=== PATIENT | female | born 1990 | race American Indian/Alaskan Native ===

== ENCOUNTER 2017-06-21 14:44 | Outpatient (CLI) | payer MEDICAID ==
[2017-06-21 15:14] VITALS: BP 104/60
[2017-06-21] MEDS ORDERED: VISTARIL PO ONE (16:31)
== END 2017-06-21 17:07 | disposition home or self-care (01) ==
LOC: TRG 14:44
PROVIDERS: ATTEND Obstetrics & Gynecology
DX: O47.1 False labor at or after 37 completed weeks of gestation (principal); Z3A.39 39 weeks gestation of pregnancy
CPT/HCPCS: 59025; Q0177

== ENCOUNTER 2017-06-22 08:03 | Inpatient (IN) | payer MEDICAID ==
[2017-06-22] MEDS ORDERED: NARCAN 0.4 MG/1 ML IV PRN (08:50)
[2017-06-22] MEDS ORDERED: BRETHINE SUB-Q PRN (08:50)
[2017-06-22] MEDS ORDERED: MINERAL OIL PO PRN (08:50)
[2017-06-22] MEDS ORDERED: ZOFRAN IV PRN ×2 (08:50→18:30)
[2017-06-22] MEDS ORDERED: BRETHINE IVP PRN (08:50)
[2017-06-22] MEDS ORDERED: ePHEDrine SULFATE IV PRN ×2 (08:50→10:43)
[2017-06-22] MEDS ORDERED: XYLOCAINE 2% INFILTRATI ONE (08:50)
[2017-06-22] MEDS ORDERED: PITOCin/NS 20 UNIT/1000ML DRIP 20 UNITS/1,000 ML BAG IV SCH ×2 (09:00→18:30)
[2017-06-22] MEDS ORDERED: PITOCin/NS 30 UNIT/500ML 30 UNITS/500 ML BAG IV SCH (09:00)
[2017-06-22] MEDS: SUBLIMAZE IV PRN ×2 (09:23→10:13)
[2017-06-22] MEDS: LACTATED RINGERS 1,000 ML IV SCH ×3 (09:23→11:28)
[2017-06-22 09:55] LABS: Hematocrit 30.2 % (30.3-42.9); Hemoglobin 10.6 gm/dl (10.1-14.3); Mean Corpuscular HGB Conc 35 % (30-34); Mean Corpuscular Hemoglobin 31 pg (28-32); Mean Corpuscular Volume 90 fl (79-97); Platelet Count 156 K/mm3 (140-440); Red Blood Count 3.36 M/mm3 (3.65-5.03); Red Cell Distribution Width 12.9 % (13.2-15.2); White Blood Count 8.1 K/mm3 (4.5-11.0)
[2017-06-22] MEDS ORDERED: ePHEDrine SULFATE ONE (10:10)
[2017-06-22] MEDS ORDERED: NARCAN 2 MG/2 ML IV PRN (10:43)
--- NOTE | 2017-06-22 10:43 | Anesthesia Consultation ---
Anesthesia Consult and Med Hx Date of service: 06/22/17 - Airway Anesthetic Teeth Evaluation: Good ROM Head & Neck: Adequate Mental/Hyoid Distance: Adequate Mallampati Class: Class II Intubation Access Assessment: Probably Good - Pre-Operative Health Status ASA Pre-Surgery Classification: ASA2 Proposed Anesthetic Plan: Epidural, Spinal - Pulmonary Hx Asthma: No COPD: No Hx Pneumonia: No - Cardiovascular System Hx Hypertension: No - Central Nervous System Hx Seizures: No Hx Psychiatric Problems: No - Endocrine Hx Renal Disease: No Hx End Stage Renal Disease: No Hx Hypothyroidism: No Hx Hyperthyroidism: No - Hematic Hx Anemia: Yes Hx Sickle Cell Disease: No - Other Systems Hx Alcohol Use: No
[2017-06-22] MEDS ORDERED: fentaNYL-BUPIV 2 MCG/ML-0.125% 200 MCG/100 ML BAG EPIDURAL SCH (11:00)
[2017-06-22] MEDS: PITOCin/NS 30 UNIT/500ML 30 UNITS/500 ML BAG IV SCH ×4 (12:11→15:01)
--- NOTE | 2017-06-22 14:21 | History and Physical Report ---
History of Present Illness Date of examination: 06/22/17 Date of admission: 06/22/17 08:04 Chief complaint: contractions History of present illness: Pt is a 26 year old female FRANCIS 06/27/17 at 39w2d who presents with regular contractions and advanced cervical dilation of 5-6 cm. She denies leakage of fluid or vaginal bleeding. She has had care at [facility] since 12 wks complicated by total previa in first trimester which resolved by 05/24/17, genital herpes on Valtrex suppression, and anemia on iron supplementation. She is GBS negative. 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 Family/Genetic History: hypertension Social history: no significant social history - Obstetrical History Expected Date of Delivery: 06/27/17 Actual Gestation: 39 Week(s) 2 Day(s) : 4 Para: 2 Hx # Term Pregnancies: 2 Number of Pregnancies: 0 Spontaneous Abortions: 0 Induced : 1 Number of Living Children: 2 Medications and Allergies Allergies Allergy/AdvReac Type Severity Reaction Status Date / Time No Known Allergies Allergy Verified 06/21/17 15:04 Home Medications Medication Instructions Recorded Confirmed Last Taken Type Nitrofurantoin [place]/M-Cryst 100 mg PO Q12HR #14 capsule 12/11/16 Unknown Rx [Macrobid CAP] Active Meds: Active Medications Ephedrine Sulfate (Ephedrine Sulfate) 10 mg IV Q2M PRN PRN Reason: Hypotension Stop: 06/22/17 23:59 Fentanyl (Sublimaze) 100 mcg IV Q2H PRN PRN Reason: Labor Pain Last Admin: 06/22/17 10:13 Dose: 100 mcg Lactated Ringer's (Lactated Ringers) 1,000 mls @ 125 mls/hr IV DIRECT MARCO ANTONIO Last Admin: 06/22/17 11:28 Dose: 125 mls/hr Oxytocin/Sodium Chloride (Pitocin/Ns 20 Unit/1000ml Drip) 20 units in 1,000 mls @ 125 mls/hr IV DIRECT MARCO ANTONIO Oxytocin/Sodium Chloride (Pitocin/Ns 30 Unit/500ml) 30 units in 500 mls @ 4 mls /hr IV TITR MARCO ANTONIO PRN Reason: Protocol Oxytocin/Sodium Chloride (Pitocin/Ns 30 Unit/500ml) 30 units in 500 mls @ 1 mls /hr IV TITR MARCO ANTONIO; 1 MILLIUNITS/MIN PRN Reason: Protocol Last Admin: 06/22/17 14:00 Dose: 8 milliunits/min, 8 mls/hr Fentanyl/Bupivacaine/Sodium Chlor (Fentanyl-Bupiv 2 Mcg/Ml-0.125%) 200 mcg in 100 mls @ 12 mls/hr EPIDURAL TITR MARCO ANTONIO PRN Reason: Protocol Last Admin: 06/22/17 12:22 Dose: 12 mls/hr Mineral Oil (Mineral Oil) 30 ml PO QHS PRN PRN Reason: Constipation Naloxone HCl (Narcan 2 Mg/2 Ml) 0.2 mg IV Q5M PRN PRN Reason: Respiratory sedation Stop: 06/22/17 23:59 Ondansetron HCl (Zofran) 4 mg IV Q8H PRN PRN Reason: Nausea And Vomiting Review of Systems All systems: negative - Vital Signs Vital signs: Vital Signs Pulse Pulse Ox 81 97 06/22/17 09:11 06/22/17 09:11 Temp Pulse Resp BP Pulse Ox 96.9 F L 80 18 101/59 98 06/22/17 10:02 06/22/17 14:12 06/22/17 10:02 06/22/17 14:09 06/22/17 14:12 - Physical Exam Breasts: Positive: deferred Cardiovascular: Regular rate Lungs: Positive: Clear to auscultation Abdomen: Positive: soft (gravid ) Uterus: Positive: enlarged (gravid ) - Obstetrical FHR: auscultation normal Uterine Contraction Monitor Mode: External Cervical Dilatation: 8.5 Cervical Effacement Percentage: 100 station: -2 Uterine Contraction Pattern: Regular Uterine Tone Measurement Phase: Resting Uterine Contraction Intensity: Moderate Results Result Diagrams: 06/22/17 08:45 Abnormal lab results 06/22/17 Range/Units 08:45 RBC 3.36 L (3.65-5.03) M/mm3 Hct 30.2 L (30.3-42.9) % MCHC 35 H (30-34) % RDW 12.9 L (13.2-15.2) % All other labs normal. Assessment and Plan A: IUP at 39w2d Active labor GBS negative Genital Herpes- no lesion or prodrome P: Admit to labor and delivery. Routine intrapartum care. Closely monitor maternal and status.
--- NOTE | 2017-06-22 16:00 | Procedure Note ---
OB Delivery Note - Delivery Date of Delivery: 06/22/17 Surgeon: NARESH MIRANDA Estimated blood loss: 300cc - Vaginal Delivery presentation: vertex Delivery position: OA Intrapartum events: PROM->1hr before delivery, decreased FHT variability, mult.variable deceleratio Delivery induction: none Delivery augmentation: pitocin Delivery monitor: external FHT, external uterine Route of delivery: Delivery placenta: spontaneous Delivery cord: 3 umbilical vessels Episiotomy: none Delivery laceration: other (bilateral periurethral- hemostatic ) Anesthesia: epidural Delivery comments: Pt progressed to complete/complete/+3 and pushed to deliver a viable male via over intact perineum under epidural anesthesia. Head delivered in TAY position, followed by shoulders and body. placed on maternal abdomen and bulb suctioned. Cord clamped and cut. Cord blood collected. Placenta delivered spontaneously (3VC, intact). Vagina and perineum explored. Bilateral periurethrals noted to be hemostatic. EBL 300 mL. - A at 1 minute: 8 at 5 minutes: 9 Infant Gender: Male (3445g (7lb 10 oz) @ 1541 pm)
[2017-06-22] MEDS ORDERED: PITOCin/NS 20 UNIT/1000ML DRIP 20,000 MILLIUNITS/1,000 ML BAG IV ONE (18:20)
[2017-06-22] MEDS ORDERED: DULCOLAX PR PRN (18:30)
[2017-06-22] MEDS ORDERED: SODIUM CHLORIDE FLUSH SYRINGE 10 ML IV SCH (18:30)
[2017-06-22] MEDS ORDERED: LANSINOH TP PRN (18:30)
[2017-06-22] MEDS ORDERED: TYLENOL PO PRN (18:30)
[2017-06-22] MEDS ORDERED: BENADRYL PO PRN (18:30)
[2017-06-22] MEDS ORDERED: PHENERGAN PR PRN (18:30)
[2017-06-22] MEDS ORDERED: PHENERGAN PO PRN (18:30)
[2017-06-22] MEDS ORDERED: TUCKS PAD TP PRN (18:30)
[2017-06-22] MEDS ORDERED: MILK OF MAGNESIA PO PRN (18:30)
[2017-06-22] MEDS: MOTRIN PO SCH (20:31)
[2017-06-22] MEDS: FEOSOL PO SCH (21:59)
[2017-06-23] MEDS: MOTRIN PO SCH ×5 (01:02→23:20)
[2017-06-23 05:14] LABS: Hematocrit 26.2 % (30.3-42.9); Hemoglobin 8.4 gm/dl (10.1-14.3)
[2017-06-23] MEDS: NORCO 5/325 PO PRN ×2 (05:17→21:18)
[2017-06-23] MEDS ORDERED: BOOSTRIX IM ONE (06:00)
[2017-06-23] MEDS: FEOSOL PO SCH ×2 (10:46→21:20)
[2017-06-23] MEDS: PRENATAL VITAMIN PO SCH (10:46)
--- NOTE | 2017-06-23 15:23 | Progress Note ---
Assessment and Plan A: PPD#1 s/p at term, Asymptomatic anemia P: Routine care. Anticipate discharge tomorrow morning. Subjective - Subjective Date of service: 06/23/17 Principal diagnosis: s/p at term Interval history: No overnight issues. Patient reports: appetite normal, voiding normally, pain well controlled, ambulating normally, no dizzy ambulation, no nauseated [place]: doing well Objective - Vital Signs Latest vital signs: Vital Signs Temp Pulse Resp BP BP Pulse Ox 06/23/17 12:45 98.2 F 71 19 95/52 06/23/17 10:47 18 06/23/17 08:50 98.0 F 66 17 97/43 06/23/17 05:30 97.7 F 76 20 108/66 06/23/17 01:33 98.5 F 88 20 98/50 06/22/17 18:16 98.7 F 80 18 111/69 06/22/17 17:33 88 97 06/22/17 17:28 71 98 06/22/17 17:23 74 98 06/22/17 17:18 73 98 06/22/17 17:13 78 99 06/22/17 17:09 78 112/63 06/22/17 17:08 83 99 06/22/17 17:03 74 98 06/22/17 16:59 84 88 06/22/17 16:58 75 99 17 16:53 77 100 06/22/17 16:48 71 97 06/22/17 16:43 72 99 06/22/17 16:39 72 110/63 06/22/17 16:38 73 99 06/22/17 16:36 75 94 17 16:33 75 99 06/22/17 16:28 77 99 06/22/17 16:24 85 92 06/22/17 16:23 74 98 06/22/17 16:18 73 99 06/22/17 16:13 79 99 06/22/17 16:09 71 114/62 17 16:08 82 98 17 15:52 72 98 06/22/17 15:47 87 99 06/22/17 15:44 81 77 L 06/22/17 15:42 80 100 06/22/17 15:40 72 128/78 06/22/17 15:36 80 100 06/22/17 15:32 75 100 06/22/17 15:27 61 100 06/22/17 15:26 66 104/61 Intake and Output 06/23/17 06/23/17 06/23/17 06:59 14:59 22:59 Intake Total 360 120 Output Total 800 Balance -440 120 Intake: Oral 120 Intake, Free Water 360 Output: Urine 800 Void 800 Other: Total, Intake Amount 120 Total, Output Amount 800 # Voids Void 1 1 - Exam Breasts: Present: deferred Cardiovascular: Present: Regular rate Lungs: Present: Clear to auscultation Abdomen: Present: soft Uterus: Present: normal, fundal height at umbilicus Extremities: Present: normal - Labs Labs: Abnormal lab results 06/23/17 Range/Units 04:38 Hgb 8.4 L (10.1-14.3) gm/dl Hct 26.2 L (30.3-42.9) %
--- NOTE | 2017-06-23 15:27 | Discharge Summary ---
Providers - Providers Date of Admission: 06/22/17 08:04 Date of discharge: 06/24/17 Attending physician: NARESH MIRANDA 06/22/17 18:30 Consult to Sugar Laboratory Assistant [CONS] Routine Reason For Exam: assistance with , SNS Primary care physician: NARESH MIRANDA Hospitalization Reason for admission: active labor Delivery: Procedure details: Please see delivery note. Episiotomy: none Laceration: other (Bilateral periurethrals ) Incision: normal Other procedures: none complications: none Discharge diagnosis: IUP at term delivered baby: male Hospital course: Patient was admitted in active labor and went on to have a spontaneous vaginal delivery she tolerated well. Her course was uncomplicated and she would discharge criteria on postoperative day #2. Condition at discharge: Stable Disposition: DC-01 TO HOME OR SELFCARE - Discharge Diagnoses (1) Term of male Status: Acute (2) Anemia Status: Acute Qualifiers: Anemia type: unspecified type Iron deficiency anemia type: I Vitamin B12 deficiency anemia type: V Folate deficiency anemia type: F Bone marrow failure anemia type: B Hemolytic anemia type: H Other causes of anemia: O Chronic kidney disease stage: C Qualified Code(s): D64.9 - Anemia, unspecified Plan - Discharge Medications Prescriptions: Ferrous Sulfate [Feosol 325 MG tab] 325 mg PO BID #60 tablet HYDROcodone/APAP 5-325 [[place] 5/325] 1 each PO Q6HR PRN #30 tablet PRN Reason: Pain Ibuprofen [Motrin] 600 mg PO Q6H PRN #30 tablet PRN Reason: Pain - Provider Discharge Summary Activity: routine, no sex for 6 weeks, no heavy lifting 4 weeks, no strenuous exercise Diet: routine Instructions: routine Additional instructions: [] Smoking cessation referral if applicable(refer to patient education folder for contact #) [] Refer to [facility] Booklet Call your doctor immediately for: * Fever > 100.5 * Heavy vaginal bleeding ( >1 pad per hour) * Severe persistent headache * Shortness of breath * Reddened, hot, painful area to leg or breast * Drainage or odor from incision. * Keep incision clean and dry at all times and follow doctor's instructions regarding bathing/showering Plan schedule on circumcision for years 1-month-old. - Follow up plan Follow up: MCLESTER,AZUL, CNM [Advanced Practice Nurse] - 07/23/17 ( exam- please schedule appointment. )
[2017-06-23] MEDS ORDERED: M-M-R II VACCINE SUB-Q ONE (16:01)
[2017-06-23] MEDS: COLACE PO SCH (22:00)
[2017-06-24] MEDS: MOTRIN PO SCH ×3 (05:08→12:09)
[2017-06-24] MEDS: FEOSOL PO SCH (10:02)
[2017-06-24] MEDS: COLACE PO SCH (10:02)
[2017-06-24] MEDS: PRENATAL VITAMIN PO SCH (10:03)
[2017-06-24 18:06] VITALS: BP 107/61
== END 2017-06-24 21:00 | disposition home or self-care (01) | DRG 774 ==
LOC: TRG 08:03 → LD 08:04 → TRG 08:04 → OB 18:12
PROVIDERS: ADMIT Obstetrics & Gynecology; ATTEND Obstetrics & Gynecology
PROC: 10E0XZZ Delivery of Products of Conception, External Approach (ICD-10-PCS; principal; 2017-06-22)
PROC: 3E0S3CZ (ICD-10-PCS; 2017-06-22)
PROC: 00HU33Z Insertion of Infusion Device into Spinal Canal, Percutaneous Approach (ICD-10-PCS; 2017-06-22)
PROC: 3E0234Z Introduction of Serum, Toxoid and Vaccine into Muscle, Percutaneous Approach (ICD-10-PCS; 2017-06-22)
DX: O98.32 Other infections with a predominantly sexual mode of transmission complicating childbirth (principal); A60.00 Herpesviral infection of urogenital system, unspecified; O42.02 Full-term premature rupture of membranes, onset of labor within 24 hours of rupture; O76 Abnormality in fetal heart rate and rhythm complicating labor and delivery; O71.82 Other specified trauma to perineum and vulva; O99.03 Anemia complicating the puerperium; D64.9 Anemia, unspecified; Z37.0 Single live birth; Z3A.39 39 weeks gestation of pregnancy; Z23 Encounter for immunization; Z79.899 Other long term (current) drug therapy
CPT/HCPCS: 36415; 85014; 85018; 85027; 86592; 86850; 86900; 86901; 90471; 90715; J2590; J3010; J7120

== ENCOUNTER 2022-01-23 08:54 | Inpatient (IN) | payer MEDICAID ==
[2022-01-23] MEDS ORDERED: LACTATED RINGERS 1,000 ML ONE (10:03)
[2022-01-23 11:22] LABS: Hematocrit 30.6 % (30.3-42.9); Hemoglobin 10.7 gm/dl (10.1-14.3); Mean Corpuscular HGB Conc 35 % (30-34); Mean Corpuscular Volume 93 fl (79-97); Platelet Count 166 K/mm3 (140-440); Red Cell Distribution Width 13.9 % (13.2-15.2)
[2022-01-23] MEDS ORDERED: fentaNYL 100 MCG/2 ML INJ IV PRN (13:00)
[2022-01-23] MEDS ORDERED: LOPERAMIDE 2 MG CAP PO PRN (13:00)
[2022-01-23] MEDS ORDERED: ePHEDrine SULFATE 50 MG/1 ML INJ IV PRN (13:00)
[2022-01-23] MEDS ORDERED: NalbUPHINE 10 MG/1 ML INJ IV PRN (13:00)
[2022-01-23] MEDS ORDERED: TERBUTALINE 1 MG/1 ML INJ SUB-Q PRN (13:00)
[2022-01-23] MEDS ORDERED: OXYTOCIN 10 UNIT/1 ML INJ IM PRN (13:00)
[2022-01-23] MEDS ORDERED: miSOPROStol 200 MCG TAB PR PRN (13:00)
[2022-01-23] MEDS ORDERED: NALOXONE 0.4 MG/1 ML INJ IV PRN (13:00)
[2022-01-23] MEDS ORDERED: ACETAMINOPHEN 325 MG TAB PO PRN (13:00)
[2022-01-23] MEDS ORDERED: MINERAL OIL 30 ML ORAL LIQD PO PRN (13:00)
[2022-01-23] MEDS ORDERED: CARBOPROST TROMETHAMINE 250 MCG/1 ML INJ IM PRN (13:00)
[2022-01-23] MEDS ORDERED: DINOPROSTONE 10 MG VAG SUPP VG SCH (13:00)
[2022-01-23] MEDS ORDERED: LIDOCAINE (2%) 20 MG/1 ML VIAL 20 ML MDV INFILTRATI SCH (13:00)
[2022-01-23] MEDS ORDERED: METHYLERGONOVINE MALEATE 0.2 MG/ML VIAL IM PRN (13:00)
[2022-01-23] MEDS ORDERED: ONDANSETRON 4 MG/2 ML INJ IV PRN (13:00)
[2022-01-23] MEDS ORDERED: OXYTOCIN DRIP 30 UNITS/500 ML BAG IV SCH ×2 (13:00)
--- NOTE | 2022-01-23 19:32 | History and Physical Report ---
History of Present Illness Date of examination: 01/23/22 Date of admission: 01/23/22 09:35 Chief complaint: Induction of labor History of present illness: 31-year-old -0-0-3 at 41+1 weeks who presents for induction of labor secondary to postterm . The patient's course was initiated in the first trimester of her . Her course is complicated by a history of anemia, and a history of genital herpes for which the patient denies any recent prodrome. The patient has been on suppressive therapy since 35 weeks estimated gestational age. The patient is GBS negative. Past History Past Medical History: other (Anemia) Past Surgical History: other (Rhinoplasty) Social history: single - Obstetrical History Expected Date of Delivery: 01/15/22 Actual Gestation: 41 Week(s) 1 Day(s) : 4 Para: 3 Hx # Term Pregnancies: 3 Number of Pregnancies: 0 Spontaneous Abortions: 0 Induced : 0 Number of Living Children: 3 Medications and Allergies Allergies Allergy/AdvReac Type Severity Reaction Status Date / Time No Known Allergies Allergy Verified 06/21/17 15:04 Home Medications Medication Instructions Recorded Confirmed Last Taken Type Nitrofurantoin [place]/M-Cryst 100 mg PO Q12HR #14 capsule 12/11/16 06/22/17 Unknown Rx [Macrobid CAP] Iron,Carb/Vit C/Vit B12/Folic 2 each PO DAILY 06/22/17 06/22/17 06/21/17 History [Iron 100 Plus Tablet] Docusate Sodium [Colace] 100 mg PO BID PRN #60 capsule 06/23/17 Unknown Rx Ferrous Sulfate [Feosol 325 MG tab] 325 mg PO BID #60 tablet 06/23/17 Unknown Rx HYDROcodone/APAP 5-325 [[place] 1 each PO Q6HR PRN #30 tablet 06/23/17 Unknown Rx 5/325] Ibuprofen [Motrin] 600 mg PO Q6H PRN #30 tablet 06/23/17 Unknown Rx Active Meds: Active Medications Acetaminophen (Acetaminophen 325 Mg Tab) 650 mg PO Q4H PRN PRN Reason: Pain, Mild (1-3) Carboprost Tromethamine (Carboprost Tromethamine 250 Mcg/1 Ml Inj) 250 mcg IM ONCE PRN PRN Reason: Uterine Bleeding Ephedrine Sulfate (Ephedrine Sulfate 50 Mg/1 Ml Inj) 10 mg IV Q2M PRN PRN Reason: Hypotension Fentanyl (Fentanyl 100 Mcg/2 Ml Inj) 100 mcg IV Q2H PRN PRN Reason: Pain,Severe (7-10) LABOR PAIN Oxytocin/Sodium Chloride (Pitocin/Ns 30 Unit/500ml) 30 units in 500 mls @ 2 mls/hr IV TITR MARCO ANTONIO; Protocol Lactated Ringer's (Lactated Ringers) 1,000 mls @ 125 mls/hr IV DIRECT MARCO ANTONIO Oxytocin/Sodium Chloride (Pitocin/Ns 30 Unit/500ml) 30 units in 500 mls @ 40 mls/hr IV TITR MARCO ANTONIO; Protocol Lidocaine (Lidocaine (2%) 20 Mg/1 Ml Vial 20 Ml Mdv) 20 ml INFILTRATI ONCE@1300 MARCO ANTONIO Stop: 01/24/22 12:59 Loperamide HCl (Loperamide 2 Mg Cap) 2 mg PO ONCE PRN PRN Reason: give with Hemabate Methylergonovine Maleate (Methylergonovine Maleate 0.2 Mg/Ml Vial) 0.2 mg IM ONCE PRN PRN Reason: Uterine Bleeding Mineral Oil (Mineral Oil 30 Ml Oral Liqd) 30 ml PO QHS PRN PRN Reason: Constipation Misoprostol (Misoprostol 200 Mcg Tab) 800 mcg [place] ONCE PRN PRN Reason: Uterine Bleeding Nalbuphine HCl (Nalbuphine 10 Mg/1 Ml Inj) 10 mg IV Q2H PRN PRN Reason: Pain, Moderate (4-6) Naloxone HCl (Naloxone 0.4 Mg/1 Ml Inj) 0.1 mg IV Q2MIN PRN PRN Reason: Res Rate </= 8 or 02 SAT < 92% Ondansetron HCl (Ondansetron 4 Mg/2 Ml Inj) 4 mg IV Q8H PRN PRN Reason: Nausea And Vomiting Oxytocin (Oxytocin 10 Unit/1 Ml Inj) 10 unit IM ONCE PRN PRN Reason: Uterine Bleeding Terbutaline Sulfate (Terbutaline 1 Mg/1 Ml Inj) 0.25 mg SUB-Q ONCE PRN PRN Reason: Hyperstimulation/Hypertonicity Review of Systems All systems: negative - Vital Signs Vital signs: Vital Signs Pulse Pulse Ox 92 H 99 01/23/22 09:21 01/23/22 09:21 Temp Pulse Resp BP Pulse Ox 97.7 F 74 18 103/63 100 01/23/22 15:23 01/23/22 18:02 01/23/22 10:20 01/23/22 18:02 01/23/22 17:03 - Physical Exam Breasts: Positive: deferred Cardiovascular: Regular rate Lungs: Positive: Clear to auscultation Abdomen: Positive: normal appearance Results Result Diagrams: 01/23/22 10:30 Abnormal lab results 01/23/22 Range/Units 10:30 RBC 3.30 L (3.65-5.03) M/mm3 MCHC 35 H (30-34) % All other labs normal. Assessment and Plan - Patient Problems (1) Post-term Current Visit: Yes Status: Acute Plan to address problem: Admit to labor and delivery for induction of labor
[2022-01-24] MEDS: LACTATED RINGERS 1,000 ML IV SCH ×4 (01:06→20:46)
--- NOTE | 2022-01-24 12:59 | Event Note ---
Date: 01/24/22 Pt moderately uncomfortable with contractions. Category II tracing. SVE: 3.5/50/-3/Medium. Continue pitocin induction. Continue to closely monitor maternal and status.
--- NOTE | 2022-01-24 17:47 | Event Note ---
Date: 01/24/22 Pt more uncomfortable with contractions but does not desire epidural. SVE: /-3. AROM- meconium stained amniotic fluid. Continue pitocin augmentation.
--- NOTE | 2022-01-24 20:31 | Event Note ---
Date: 01/24/22 Pt now tearful with contractions and requesting epidural. Category II tracing. SVE: /-2. Epidural as desired. Continue pitocin augmentation.
[2022-01-24] MEDS ORDERED: ePHEDrine SULFATE 50 MG/1 ML INJ ONE (20:37)
[2022-01-24] MEDS ORDERED: ePHEDrine SULFATE 50 MG/1 ML INJ IV PRN (20:38)
[2022-01-24] MEDS ORDERED: NALOXONE 2 MG/2 ML INJ IV PRN (20:38)
--- NOTE | 2022-01-24 20:38 | Anesthesia Consultation ---
Anesthesia Consult and Med Hx Date of service: 01/24/22 - Airway Anesthetic Teeth Evaluation: Good ROM Head & Neck: Adequate Mental/Hyoid Distance: Adequate Mallampati Class: Class II Intubation Access Assessment: Probably Good - Pulmonary Exam CTA: Yes - Cardiac Exam Cardiac Exam: RRR - Pre-Operative Health Status ASA Pre-Surgery Classification: ASA2 Proposed Anesthetic Plan: Epidural - Pulmonary Hx Asthma: No COPD: No Hx Pneumonia: No - Cardiovascular System Hx Hypertension: No - Central Nervous System Hx Seizures: No Hx Psychiatric Problems: No - Endocrine Hx Renal Disease: No Hx End Stage Renal Disease: No Hx Hypothyroidism: No Hx Hyperthyroidism: No - Hematic Hx Anemia: No Hx Sickle Cell Disease: No - Other Systems Hx Alcohol Use: No
[2022-01-24] MEDS ORDERED: fentaNYL-BUPIV 2 MCG/ML-0.125% 200 MCG/100 ML BAG EPIDURAL SCH (21:00)
--- NOTE | 2022-01-24 21:39 | Progress Note ---
Labor Epidural - Labor Epidural Start Time: 20:47 Stop Time: 20:53 Performed by:: MARTINA ODONNELL Procedure: Patient is requesting epidural for labor pain. H&P, and labs reviewed. Procedure explained, questions answered, consent obtained. Patient in sitting position with blood pressure cuff and pulse ox on and working. Timeout performed immediately before start of procedure. Sterile Chloraprep prep/drape. Lidocaine skin wheal at L[3]-L[4]. 17-gauge tuohy epidural needle advanced to [id number] with saline at [7] cm. 25-gauge spinal needle advanced until clear, free-flowing CSF. Intrathecal dexmedetomidine [5] mcg administered and needle removed. Epidural catheter advanced to [12] cm, negative aspiration for blood and csf, negative test dose 3 ml 1.5% lidocaine with epinephrine. Sterile sponge and tegaderm applied, followed by tape reinforcement. Patient tolerated procedure well.
--- NOTE | 2022-01-24 22:11 | Procedure Note ---
OB Delivery Note - Delivery Date of Delivery: 01/24/22 Surgeon: NARESH MIRANDA Estimated blood loss: other (600 mL) - Vaginal Delivery presentation: vertex Delivery position: OA Intrapartum events: PROM->1hr before delivery, meconium, decreased FHT variability, mult.variable deceleratio, hemorrhage (s/p Methergine 0.2 mg and Misoprotol 800 mcg per rectum ), uterine atony Delivery induction: cervidil Delivery augmentation: rupture of membranes, pitocin Delivery monitor: external FHT, external uterine Route of delivery: Delivery placenta: spontaneous Delivery cord: nuchal cord (loose and delivered through ) Episiotomy: none Delivery laceration: other (Bilateral periurethrals- hemostatic without repair ) Anesthesia: epidural - Infant A at 1 minute: 8 (3160g (7lb 0oz) @ 2145 pm) at 5 minutes: 9 Infant Gender: Male
[2022-01-25] MEDS ORDERED: BENZOCAINE/MENTHOL 20/0.5% TOP SPRAY 56 GM TP PRN (00:36)
[2022-01-25] MEDS ORDERED: LANOLIN/ZINC/DIMETHICONE (LANSINOH) 7 GM TP PRN ×2 (00:36)
[2022-01-25] MEDS ORDERED: MAGNESIUM HYDROXIDE (MOM) ORAL LIQD UDC PO PRN (00:36)
[2022-01-25] MEDS ORDERED: WITCH HAZEL/ GLYCERIN PAD TP PRN (00:36)
[2022-01-25] MEDS ORDERED: PROMETHAZINE 25 MG TAB PO PRN (00:36)
[2022-01-25] MEDS ORDERED: diphenhydrAMINE 25 MG CAP PO PRN (00:36)
[2022-01-25] MEDS ORDERED: ONDANSETRON 4 MG/2 ML INJ IV PRN (00:36)
[2022-01-25] MEDS ORDERED: PROMETHAZINE 25 MG RECT SUPP PR PRN (00:36)
[2022-01-25] MEDS: IBUPROFEN 800 MG TAB PO SCH ×3 (06:13→21:42)
--- NOTE | 2022-01-25 08:20 | Discharge Summary ---
Providers - Providers Date of Admission: 01/23/22 09:35 Date of discharge: 01/26/22 Attending physician: JACOB HANDLEY 01/25/22 00:36 Consult to Casing Cleaner [CONS] Routine Reason For Exam: assistance with , SNS Primary care physician: [employer]SUITE DEVELOPER Hospitalization Reason for admission: induction of labor Delivery: Episiotomy: none Laceration: none Other procedures: none complications: other (PPH) Discharge diagnosis: IUP at term delivered, other (anemia) [place] baby: female Hospital course: 31-year-old -0-0-3 at 41+1 weeks who presents for induction of labor secondary to postterm . The patient's course was initiated in the first trimester of her . Her course is complicated by a history of anemia, and a history of genital herpes for which the patient denies any recent prodrome. The patient has been on suppressive therapy since 35 weeks estimated gestational age. The patient is GBS negative. Delivered viable female infant via . Condition at discharge: Good Disposition: 01 HOME / SELF CARE / HOMELESS - Discharge Diagnoses (1) Status post normal vaginal delivery Status: Acute (2) Anemia Status: Acute Qualifiers: Anemia type: iron deficiency Comment: Asymptomatic Plan - Discharge Medications Prescriptions: Ibuprofen [Motrin 800 MG tab] 800 mg PO Q8HR #30 tablet - Provider Discharge Summary Activity: routine, no sex for 6 weeks, no heavy lifting 4 weeks, no strenuous exercise Diet: other (Iron rich diet) Instructions: routine Additional instructions: [] Smoking cessation referral if applicable(refer to patient education folder for contact #) [] Refer to [facility] Booklet Call your doctor immediately for: * Fever > 100.5 * Heavy vaginal bleeding ( >1 pad per hour) * Severe persistent headache * Shortness of breath * Reddened, hot, painful area to leg or breast - Follow up plan Follow up: NARESH MIRANDA MD [Staff Physician] - 6 Weeks
[2022-01-25] MEDS: HYDROcodone/ACETAMINOPHEN 5-325 MG TAB PO PRN (09:09)
[2022-01-25] MEDS: FERROUS SULFATE 325 MG TAB PO SCH ×2 (09:10→21:41)
[2022-01-25 10:38] LABS: Hematocrit 26.7 % (30.3-42.9); Hemoglobin 9.3 gm/dl (10.1-14.3)
--- NOTE | 2022-01-25 10:41 | Post Anesthesia Evaluation ---
- Post Anesthesia Evaluation Patient Participated: Yes Airway Patent: Yes Stable Respiratory Function: Yes Nausea/Vomiting: No Temp > 96.8F: Yes Pain Manageable: Yes Adequeate Hydration: Yes Anesthesia Complications: No Block Receding Appropriately: Yes
[2022-01-25] MEDS ORDERED: MEASLES, MUMPS & RUBELLA 12,500 UNIT/0.5 ML VACCINE SUB-Q ONE (22:11)
[2022-01-26] MEDS: HYDROcodone/ACETAMINOPHEN 5-325 MG TAB PO PRN (00:45)
[2022-01-26] MEDS: IBUPROFEN 800 MG TAB PO SCH ×2 (04:34→05:45)
[2022-01-26] MEDS ORDERED: TETANUS,DIPH,PERTUSS(ACELL) VACCINE 0.5 ML SYRINGE IM ONE (06:00)
[2022-01-26 09:22] VITALS: BP 101/62
== END 2022-01-26 09:19 | disposition home or self-care (01) | DRG 774 ==
LOC: TRG 08:54 → LD 08:56 → UNDOADMIN 08:56 → LD 09:35 → OB 01-25 00:15
PROVIDERS: ADMIT Obstetrics & Gynecology; ATTEND Obstetrics & Gynecology
PROC: 10E0XZZ Delivery of Products of Conception, External Approach (ICD-10-PCS; principal; 2022-01-24)
PROC: 10907ZC Drainage of Amniotic Fluid, Therapeutic from Products of Conception, Via Natural or Artificial Opening (ICD-10-PCS; 2022-01-24)
PROC: 3E0R3BZ Introduction of Anesthetic Agent into Spinal Canal, Percutaneous Approach (ICD-10-PCS; 2022-01-24)
PROC: 00HU33Z Insertion of Infusion Device into Spinal Canal, Percutaneous Approach (ICD-10-PCS; 2022-01-24)
PROC: 3E0P7VZ Introduction of Hormone into Female Reproductive, Via Natural or Artificial Opening (ICD-10-PCS; 2022-01-24)
PROC: 3E0234Z Introduction of Serum, Toxoid and Vaccine into Muscle, Percutaneous Approach (ICD-10-PCS; 2022-01-25)
DX: O42.02 Full-term premature rupture of membranes, onset of labor within 24 hours of rupture (principal); O72.1 Other immediate postpartum hemorrhage; Z3A.41 41 weeks gestation of pregnancy; P08.21 Post-term newborn; Z37.0 Single live birth; Z23 Encounter for immunization; O48.0 Post-term pregnancy; Z20.822 Contact with and (suspected) exposure to COVID-19; O98.32 Other infections with a predominantly sexual mode of transmission complicating childbirth; A60.00 Herpesviral infection of urogenital system, unspecified; O77.0 Labor and delivery complicated by meconium in amniotic fluid; O76 Abnormality in fetal heart rate and rhythm complicating labor and delivery; O70.0 First degree perineal laceration during delivery; O69.81X0 Labor and delivery complicated by cord around neck, without compression, not applicable or unspecified
CPT/HCPCS: 36415; 59025; 59200; 85014; 85018; 85027; 86592; 86850; 86900; 86901; 96360; 99211; G0378; J3490; G0463; J2210; J2590; J3010; J7120; U0003